=== PATIENT | female | born 1970 | race Caucasian/White ===

== ENCOUNTER 2019-04-05 11:43 | Outpatient (CLI) | payer BC ==
[2019-04-05 12:40] LABS: Hemoglobin 14.6 gm/dl (10.1-14.3); Mean Corpuscular HGB Conc 35 % (30-34); Mean Corpuscular Volume 87 fl (79-97); Platelet Count 195 K/mm3 (140-440); Red Blood Count 4.83 M/mm3 (3.65-5.03); Red Cell Distribution Width 13.2 % (13.2-15.2)
[2019-04-05 12:53] LABS: Alanine Aminotransferase 24 units/L (7-56); Albumin 5.4 g/dL (3.9-5); BUN/Creatinine Ratio 23; Blood Urea Nitrogen 16 mg/dL (7-17); HDL Cholesterol 63 mg/dL (40-59); Hemolysis Index 4; LDL Cholesterol,Direct 208 mg/dL (50-130); Uric Acid 5.5 mg/dL (3.5-7.6)
[2019-04-09 14:19] LABS: Vitamin D, 25-OH, D2 <4 ng/mL
== END 2019-04-05 11:44 | disposition home or self-care (01) ==
LOC: LAB 11:43
PROVIDERS: ATTEND Internal Medicine
DX: Z13.220 Encounter for screening for lipoid disorders (principal); Z13.1 Encounter for screening for diabetes mellitus; Z13.21 Encounter for screening for nutritional disorder
CPT/HCPCS: 36415; 80053; 80061; 82306; 82607; 83036; 84443; 84550; 85027; 87806

== ENCOUNTER 2019-04-17 12:47 | Outpatient (CLI) | payer BC ==
--- NOTE | 2019-04-17 14:52 | Mammography Report ---
BILATERAL DIGITAL SCREENING MAMMOGRAM with CAD: 04/17/19 12:47:00 CLINICAL: Routine screening. COMPARISON:None. FINDINGS: The breasts are heterogeneously dense, which may obscure small masses. No mass, architectural distortion or suspicious calcifications. IMPRESSION: No mammographic evidence of malignancy. BI-RADS CATEGORY: 1 - - Negative RECOMMENDATION: Routine mammographic screening in one year. COMMENT: Patient follow-up letters are generated by our [employer] application.
== END 2019-04-17 12:48 | disposition home or self-care (01) ==
LOC: MAMMO 12:47
PROVIDERS: ATTEND Internal Medicine
DX: Z12.39 Encounter for other screening for malignant neoplasm of breast (principal)
CPT/HCPCS: 77067

== ENCOUNTER 2019-08-16 08:36 | Outpatient (CLI) | payer BC ==
[2019-08-16 10:52] LABS: Chol/HDL Ratio 5.14 %
== END 2019-08-16 08:37 | disposition home or self-care (01) ==
LOC: LAB 08:36
PROVIDERS: ATTEND Internal Medicine
DX: E78.5 Hyperlipidemia, unspecified (principal)
CPT/HCPCS: 36415; 80061

== ENCOUNTER 2020-08-24 06:59 | Day surgery (SDC) | payer BC ==
[~2020-08-24 06:59] MED LIST: LACTATED RINGERS 1,000 ML IV SCH; MIDAZOLAM 2 MG/2 ML INJ IV NR
--- NOTE | 2020-08-24 08:11 | Anesthesia Consultation ---
Anesthesia Consult and Med Hx Date of service: 08/24/20 - Airway Anesthetic Teeth Evaluation: Poor, Partials ROM Head & Neck: Adequate Mental/Hyoid Distance: Adequate Mallampati Class: Class II Intubation Access Assessment: Probably Good - Pulmonary Exam CTA: Yes - Cardiac Exam Cardiac Exam: RRR - Pre-Operative Health Status ASA Pre-Surgery Classification: ASA2 Proposed Anesthetic Plan: General - Pulmonary Hx Smoking: No Hx Respiratory Symptoms: No Hx Sleep Apnea: No - Cardiovascular System Hx Hypertension: No Hx Heart Attack/AMI: No - Central Nervous System CVA: No Hx Psychiatric Problems: Yes (anxiety) - Endocrine Hx Renal Disease: No (hx interstitial cystitis) Hx Liver Disease: No Hx Insulin Dependent Diabetes: No Hx Non-Insulin Dependent Diabetes: No Hx Thyroid Disease: No - Other Systems Hx Obesity: No - Additional Comments Anesthesia Medical History Comments: No hx anesthetic complications.
--- NOTE | 2020-08-24 08:12 | Anesthesia Day of Surgery ---
Anesthesia Day of Surgery - Day of Surgery Patient Examined: Yes Patient H&P Reviewed: Yes Patient is NPO: Yes
[2020-08-24] MEDS ORDERED: fentaNYL 100 MCG/2 ML INJ IV PRN (08:30)
[2020-08-24] MEDS ORDERED: ceFAZolin/STERILE WATER 2 GM/20 ML SYRINGE IV NR (08:50)
[2020-08-24] MEDS ORDERED: ONDANSETRON 4 MG/2 ML INJ ONE (09:05)
[2020-08-24] MEDS ORDERED: propofoL 200 MG/20 ML VIAL IV ONE (09:05)
[2020-08-24] MEDS ORDERED: dexAMETHasone 20 MG/5 ML VIAL ONE (09:05)
[2020-08-24] MEDS ORDERED: fentaNYL 100 MCG/2 ML INJ ONE (09:05)
[2020-08-24] MEDS ORDERED: LIDOCAINE MPF (2%) 20 MG/1 ML VIAL 5 ML ONE (09:05)
--- NOTE | 2020-08-24 11:29 | Post Anesthesia Evaluation ---
- Post Anesthesia Evaluation Patient Participated: Yes Airway Patent: Yes Stable Respiratory Function: Yes Nausea/Vomiting: No Temp > 96.8F: Yes Pain Manageable: Yes Adequeate Hydration: Yes Anesthesia Complications: No
--- NOTE | 2020-08-24 11:33 | Operative Report ---
PREOPERATIVE DIAGNOSIS: Chronic cystitis. POSTOPERATIVE DIAGNOSIS: Evidence of mild interstitial cystitis. PROCEDURE: Cystoscopy, hydrodistention, retrograde. SURGEON: Dr. Rowell. ANESTHESIA: General. FINDINGS: This is a woman with chronic pelvic pain, now presents for cystoscopic evaluation. DESCRIPTION OF PROCEDURE: The patient was brought to the operating room and placed on the operating table. Following induction of anesthesia, placed in lithotomy position, prepped and draped in usual sterile fashion. Cystourethroscopy showed normal epithelium. Retrograde showed air bubbles on the right, which drained freely. No persistent filling defects. Hydrodistention first time was 600, second time was 750. There were glomerulations mostly on lateral vidal. There were no Hunner's ulcers. The patient tolerated the procedure well. Catheter was not left. There was no significant bleeding, brought to recovery in stable condition. JOB# [id number] FARSHAD/NIK
--- NOTE | 2020-08-24 11:53 | Post Operative Note ---
Date of procedure: 08/24/20 Pre-op diagnosis: cystitis Post-op diagnosis: same Findings: glomerulations Procedure: cysto rpgs hydrodistension Anesthesia: GETA Surgeon: VIRGIE WATSON Estimated blood loss: none Pathology: none Condition: stable Disposition: PACU
--- NOTE | 2020-08-24 11:55 | Discharge Summary ---
Short Stay Discharge Plan Activity: other (no straining ) Weight Bearing Status: Full Weight Bearing Diet: regular, low salt, diabetic, low protein Special Instructions: other Follow up with: SARA LOPEZ MD [Primary Care Provider] - 7 Days VIRGIE WATSON MD [Staff Physician] - 7 Days
--- NOTE | 2020-08-24 12:09 | Fluoroscopy Report ---
FLUOROSCOPY RETROGRADE UROGRAPHY HISTORY: Cystitis, kidney stone FINDINGS: Fluoroscopy was provided by radiology during retrograde urography by the urologist. There i s normal filling of both renal collecting systems. No filling defect or abnormal dilatation is identi fied. IMPRESSION: Unremarkable bilateral retrograde pyelograms Fluoroscopy time: 39 seconds Fluoroscopic images: 5 Signer Name: Fredis Lowe Jr, MD Signed: 08/24/2020 12:05 PM Workstation Name: [id number]
[2020-08-24] MEDS ORDERED: HYDROcodone/ACETAMINOPHEN 5-325 MG TAB PO PRN (12:25)
[2020-08-24 12:53] VITALS: BP 118/70
== END 2020-08-24 07:00 | disposition home or self-care (01) ==
LOC: OR 06:59
PROVIDERS: ATTEND Urology
DX: N30.10 Interstitial cystitis (chronic) without hematuria (principal); N30.20 Other chronic cystitis without hematuria; E78.00 Pure hypercholesterolemia, unspecified; F41.9 Anxiety disorder, unspecified; Z90.710 Acquired absence of both cervix and uterus; Z88.2 Allergy status to sulfonamides; Z79.899 Other long term (current) drug therapy; Z87.442 Personal history of urinary calculi; Z87.440 Personal history of urinary (tract) infections; Z98.890 Other specified postprocedural states
CPT/HCPCS: 52260; 74420; C1758; J1100; J2250; J2405; J2704; J3010; J7120; Q9967